=== PATIENT | female | born 1990 | race Caucasian/White ===

== ENCOUNTER 2018-03-04 09:37 | Emergency (ER) | payer BC ==
[~2018-03-04] VITALS: Ht 157.5 cm; Wt 68.0 kg
[2018-03-04] MEDS ORDERED: IV NORMAL SALINE 1000ML BAG 1,000 ML IV ONE (10:00)
[2018-03-04 10:24] LABS: BASO % 1 % (0-3); EOS # 0.1 x10^3/uL (0.0-0.7); EOS % 1 % (0-3); HEMATOCRIT 35.9 % (36.0-47.0); HEMOGLOBIN 12.1 g/dL (12.0-15.5); LYMPH # 1.9 x10^3/uL (1.0-4.8); LYMPH % 21 % (24-48); MEAN CORPUSCULAR HEMOGLOBIN 29 pg (25-35); MEAN CORPUSCULAR HGB CONC 34 g/dL (31-37); MEAN CORPUSCULAR VOLUME 85 fL (79-100); MONO # 0.4 x10^3/uL (0.0-1.1); MONO % 5 % (0-9); NEUT # 6.6 x10^3uL (1.8-7.7); NEUT % 74 % (31-73); PLATELET COUNT 217 x10^3/uL (140-400); RED BLOOD COUNT 4.24 x10^6/uL (3.50-5.40); RED CELL DISTRIBUTION WIDTH 14.3 % (11.5-14.5)
--- NOTE | 2018-03-04 10:27 | PHYS DOC ---
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 She is 13 weeks and she goes to [facility] for her OB care. She states she did eat this morning and she states she is eating and drinking good. She has no recent illness. She currently has No Symptoms at All. She Has Her Next OB Appointment on Thursday. Review of Systems Review of Systems Constitutional: Denies fever or chills [] Eyes: Denies change in visual acuity, redness, or eye pain [] HENT: Denies nasal congestion or sore throat [] Respiratory: Denies cough or shortness of breath [] Cardiovascular: No additional information not addressed in HPI [] GI: Denies abdominal pain, nausea, vomiting, bloody stools or diarrhea [] : Denies dysuria or hematuria [] Musculoskeletal: Denies back pain or joint pain [] Integument: Denies rash or skin lesions [] Neurologic: Denies headache, focal weakness or sensory changes [] Endocrine: Denies polyuria or polydipsia [] All other systems were reviewed and found to be within normal limits, except as documented in this note. Current Medications Current Medications Current Medications Medications (Trade) Dose Ordered Sig/Jonathon Start Time Stop Time Status Last Admin Dose Admin Sodium Chloride 1,000 ml @ 1,000 mls/hr 1X ONCE 03/04/18 10:00 03/04/18 10:59 DC 03/04/18 10:12 1,000 MLS/HR Allergies Allergies Allergies Coded Allergies Type Severity Reaction Last Updated Verified No Known Drug Allergies 03/04/18 No Physical Exam Physical Exam Constitutional: Well developed, well nourished, no acute distress, non-toxic appearance. [] HENT: Normocephalic, atraumatic, bilateral external ears normal, oropharynx moist, no oral exudates, nose normal. [] Eyes: PERRLA, EOMI, conjunctiva normal, no discharge. [] Neck: Normal range of motion, no tenderness, supple, no stridor. [] Cardiovascular:Heart rate regular rhythm, no murmur [] Lungs & Thorax: Bilateral breath sounds clear to auscultation [] Abdomen: Bowel sounds normal, soft, no tenderness, no masses, no pulsatile masses. [] Skin: Warm, dry, no erythema, no rash. [] Back: No tenderness, no CVA tenderness. [] Extremities: No tenderness, no cyanosis, no clubbing, ROM intact, no edema. [] Neurologic: Alert and oriented X 3, normal motor function, normal sensory function, no focal deficits noted. [] Psychologic: Affect normal, judgement normal, mood normal. [] Current Patient Data Vital Signs Vital Signs Date Time Temp Pulse Resp B/P (MAP) Pulse Ox O2 Delivery O2 Flow Rate FiO2 03/04/18 09:45 97.9 89 18 133/66 (88) 100 Room Air 97.9 Lab Values Laboratory Tests Test 03/04/18 10:05 03/04/18 10:10 03/04/18 11:05 Glucose (Fingerstick) 114 mg/dL (70-99) H White Blood Count 9.0 x10^3/uL (4.0-11.0) Red Blood Count 4.24 x10^6/uL (3.50-5.40) Hemoglobin 12.1 g/dL (12.0-15.5) Hematocrit 35.9 % (36.0-47.0) L Mean Corpuscular Volume 85 fL (79-100) Mean Corpuscular Hemoglobin 29 pg (25-35) Mean Corpuscular Hemoglobin Concent 34 g/dL (31-37) Red Cell Distribution Width 14.3 % (11.5-14.5) Platelet Count 217 x10^3/uL (140-400) Neutrophils (%) (Auto) 74 % (31-73) H Lymphocytes (%) (Auto) 21 % (24-48) L Monocytes (%) (Auto) 5 % (0-9) Eosinophils (%) (Auto) 1 % (0-3) Basophils (%) (Auto) 1 % (0-3) Neutrophils # (Auto) 6.6 x10^3uL (1.8-7.7) Lymphocytes # (Auto) 1.9 x10^3/uL (1.0-4.8) Monocytes # (Auto) 0.4 x10^3/uL (0.0-1.1) Eosinophils # (Auto) 0.1 x10^3/uL (0.0-0.7) Basophils # (Auto) 0.0 x10^3/uL (0.0-0.2) Sodium Level 136 mmol/L (136-145) Potassium Level 3.6 mmol/L (3.5-5.1) Chloride Level 103 mmol/L (98-107) Carbon Dioxide Level 23 mmol/L (21-32) Anion Gap 10 (6-14) Blood Urea Nitrogen 8 mg/dL (7-20) Creatinine 0.6 mg/dL (0.6-1.0) Estimated GFR (Cockcroft-Gault) 119.0 BUN/Creatinine Ratio 13 (6-20) Glucose Level 105 mg/dL (70-99) H Calcium Level 8.6 mg/dL (8.5-10.1) Total Bilirubin 0.3 mg/dL (0.2-1.0) Aspartate Amino Transferase (AST) 13 U/L (15-37) L Alanine Aminotransferase (ALT) 15 U/L (14-59) Alkaline Phosphatase 51 U/L (46-116) Total Protein 6.9 g/dL (6.4-8.2) Albumin 3.0 g/dL (3.4-5.0) L Albumin/Globulin Ratio 0.8 (1.0-1.7) L Urine Collection Type Unknown Urine Color Yellow Urine Clarity Clear Urine pH 8.0 Urine Specific [place] 1.010 Urine Protein Negative mg/dL (NEG-TRACE) Urine Glucose (UA) Negative mg/dL (NEG) Urine Ketones (Stick) Negative mg/dL (NEG) Urine Blood Negative (NEG) Urine Nitrite Negative (NEG) Urine Bilirubin Negative (NEG) Urine Urobilinogen Dipstick 0.2 mg/dL (0.2 mg/dL) Urine Leukocyte Esterase Negative (NEG) Urine RBC 0 /HPF (0-2) Urine WBC 1-4 /HPF (0-4) Urine Squamous Epithelial Cells Few /LPF Urine Bacteria Few /HPF (0-FEW) Laboratory Tests 03/04/18 10:10 Laboratory Tests 03/04/18 10:10 EKG EKG Sinus Rhythm and no STEMI Interpretation Time: [address] Piña Radiology/Procedures Radiology/Procedures [] Course & Med Decision Making Course & Med Decision Making Patient is a 27 year old female who presents with 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 She is 13 weeks and she goes to [facility] for her OB care. She states she did eat this morning and she states she is eating and drinking good. She has no recent illness. She currently has No Symptoms at All. She Has Her Next OB Appointment on Thursday. Alert and oriented. Skin pink warm and dry. Mucous members are moist. She denies vaginal discharge, vaginal bleeding, abdominal pain, headache, dizziness, visual changes , numbness or tingling, chest pain, shortness of air. She has no extremity edema. She is ambulatory with steady gait. EKG shows sinus rhythm and no STEMI. Vital signs are within normal limits. Blood glucose is 114. Abdomen is soft and nontender. Lungs are clear to auscultation in all lobes. Heart rate regular without murmur. PERRLA. Blood work unremarkable. Urine shows no infection. Patient is stable and currently still has no symptoms. She is alert and oriented. Patient is discharged home and she is to call her OB doctor today to see if they want her to follow up sooner than Thursday. Patient is stable and in no distress. Dragon Disclaimer Dragon Disclaimer This electronic medical record was generated, in whole or in part, using a voice recognition dictation system. Departure Departure Impression: Primary Impression: Dizziness, nonspecific Disposition: HOME, SELF-CARE Condition: STABLE Patient Instructions: Dizziness Additional Instructions: Call your OB doctor today to see if he can follow-up sooner than Thursday. Drink plenty of fluids. ARIADNE ANGEL APRN Mar 04, 2018 10:27
[2018-03-04 10:34] LABS: CALCIUM 8.6 mg/dL (8.5-10.1); CREATININE 0.6 mg/dL (0.6-1.0); POTASSIUM 3.6 mmol/L (3.5-5.1)
--- NOTE | 2018-03-04 10:36 | EKG ---
[facility] [address] [place] [address] Test Date: 2018-03-04 Test Time: 10:08:35 Pat Name: LUCA MATA Department: Room: Gender: F Finished Cl[employer] Examiner: : 1990 Requested By: ARIADNE ANGEL Order Number: [id number] Reading MD: Allen Hightower Measurements Intervals [place] Rate: 74 P: -61 NM: 134 QRS: -100 QRSD: 72 T: -100 QT: 372 QTc: 413 Interpretive Statements SINUS RHYTHM T ABNORMALITY IN HIGH LATERAL LEADS INFERIOR LEADS ABNORMAL ECG Electronically Signed On 03-09-2018 9:29:14 [employer] by Allen Hightower
[2018-03-04 10:40] LABS: ALBUMIN/GLOBULIN RATIO 0.8 (1.0-1.7); TOTAL BILIRUBIN 0.3 mg/dL (0.2-1.0); TOTAL PROTEIN 6.9 g/dL (6.4-8.2)
[2018-03-04 11:15] VITALS: BP 114/63
[2018-03-04 11:17] LABS: BILIRUBIN,URINE NEGATIVE (NEG); CLARITY,URINE CLEAR; COLOR,URINE YELLOW; NITRITE,URINE NEGATIVE (NEG); PROTEIN,URINE NEGATIVE (NEG-TRACE); UROBILINOGEN,URINE 0.2 mg/dL (0.2 mg/dL)
[2018-03-04 11:22] LABS: BACTERIA,URINE FEW /HPF (0-FEW); RBC,URINE 0 /HPF (0-2); SQUAMOUS EPITHELIAL CELL,UR FEW /LPF
== END 2018-03-04 11:50 | disposition home or self-care (01) ==
LOC: ER 09:37
DX: O99.89 Other specified diseases and conditions complicating pregnancy, childbirth and the puerperium (principal); R42 Dizziness and giddiness; Z3A.13 13 weeks gestation of pregnancy
CPT/HCPCS: 36415; 80053; 81001; 82962; 85025; 93005; 96360; 96361; 99284; J7030